=== PATIENT | male | born 1985 | race Caucasian/White ===

== ENCOUNTER 2017-04-12 02:00 | Emergency (ER) | payer SELFPAY ==
--- NOTE | 2017-04-12 02:05 | EDPHY ---
H & P Time Seen by Provider: 04/12/17 02:00 HPI/ROS: HPI The patient presents brought in by ambulance for medical clearance for long-term. Apparently, he was found on the [facility] with a warrant out for his arrest. He was oriented to person and place only. He admits to LSD use. He denies any complaints currently. REVIEW OF SYSTEMS Constitutional: No fever, no chills. Eyes: No discharge. ENT: No sore throat. Cardiovascular: No chest pain, no palpitations. Respiratory: No cough, no shortness of breath. Gastrointestinal: No abdominal pain, no vomiting. Genitourinary: No hematuria. Musculoskeletal: No back pain. Skin: No rashes. Neurological: No headache. PMHx: Healthy Soc Hx: Homeless, LSD use PHYSICAL General Appearance: Alert, no distress Eyes: Pupils equal and round no pallor or injection ENT, Mouth: Mucous membranes moist Respiratory: There are no retractions, lungs are clear to auscultation Cardiovascular: Regular rate and rhythm Gastrointestinal: Abdomen is soft and non-tender, no masses, bowel sounds normal Neurological: A&O, moves all extremities Skin: Warm and dry, no rashes Musculoskeletal: Neck is supple non tender Extremities: symmetrical, full range of motion Psychiatric: Patient is oriented X 3, there is no agitation Source: Patient, Police, EMS Medical Decision Making Differential Diagnosis: This is a 31-year-old male with no significant past medical history who presents brought in by ambulance for medical clearance for long-term after being found on the [facility], somewhat disoriented, admitting to LSD use. Here, his vital signs are normal, he has a normal physical exam. Though he is clearly intoxicated on LSD. He is medically cleared to go to long-term. Departure - Departure Disposition: Home, Routine, Self-Care Clinical Impression: LSD reaction, Medical clearance for incarceration Condition: Good Instructions: Polysubstance Abuse (ED) Referrals: [facility] Hours [Outside] - As per Instructions
[2017-04-12 02:07] VITALS: BP 133/83; PULSE 88; RESP 20; TEMP 97.9; O2SAT 94
== END 2017-04-12 02:12 | disposition home or self-care (01) ==
DX: Z02.89 Encounter for other administrative examinations (principal); F16.10 Hallucinogen abuse, uncomplicated